=== PATIENT | male | born 1970 | race Caucasian/White ===

== ENCOUNTER 2018-06-26 16:17 | Emergency (ER) | payer OTHER ==
[~2018-06-26] VITALS: Ht 167.6 cm; Wt 99.8 kg
[2018-06-26 16:19] VITALS: BP 159/66; Ht 167.6 cm; Wt 99.8 kg
== END 2018-06-26 18:34 | disposition home or self-care (01) ==
LOC: ED 16:17
DX: H10.9 Unspecified conjunctivitis (principal); R51 Headache
CPT/HCPCS: J1885

== ENCOUNTER 2018-11-19 08:40 | Emergency (ER) | payer OTHER ==
[~2018-11-19] VITALS: Ht 167.6 cm; Wt 99.8 kg
[2018-11-19 08:58] VITALS: Ht 167.6 cm; Wt 99.8 kg
[2018-11-19 10:56] VITALS: BP 142/96
== END 2018-11-19 10:56 | disposition home or self-care (01) ==
LOC: ED 08:40
DX: M25.561 Pain in right knee (principal)
CPT/HCPCS: J1885

== ENCOUNTER 2018-11-29 12:34 | Emergency (ER) | payer OTHER ==
[~2018-11-29] VITALS: Ht 167.6 cm; Wt 98.1 kg
[2018-11-29 12:41] VITALS: Ht 167.6 cm; Wt 98.1 kg
[2018-11-29 14:43] LABS: BASOPHIL % 0.5 % (0-2); PLATELET COUNT 346 x10^3mcL (130-400); RED CELL DISTRIBUTION WIDTH 13.6 % (11.5-14.5)
[2018-11-29 14:48] LABS: CALCIUM 9.1 mg/dL (8.5-10.1); CARBON DIOXIDE 28.1 mmol/L (21-32); CHLORIDE SERUM 103 mmol/L (98-107); GFR1 > 60 mL/min; GLUCOSE SERUM 95 mg/dL (74-106); POTASSIUM SERUM 4.2 mmol/L (3.5-5.1); SODIUM SERUM 140 mmol/L (136-145)
[2018-11-29 14:53] LABS: ALBUMIN 3.8 g/dL (3.4-5.0); ALKALINE PHOSPHATASE 98 U/L (46-116); ALT/SGPT 36 U/L (16-63); AST/SGOT 17 U/L (15-37); BILIRUBIN TOTAL 0.4 mg/dL (0.20-1.00); CHOLESTEROL 195 mg/dL (<200); CHOLESTEROL/HDL RATIO 4.5; HDL CHOLESTEROL 43 mg/dL (40-60); TOTAL PROTEIN, SERUM 8.2 g/dL (6.4-8.2); TRIGLYCERIDES 198 mg/dL (<150)
[2018-11-29 15:03] LABS: T3 TOTAL 1.38 ng/mL
[2018-11-29 15:14] LABS: FREE T4 1.23 ng/dL (0.76-1.46); FREE THYROXINE INDEX 3.5 ug/dL (1.4-4.5); T4(THYROXINE) 10.4 ug/dL (4.7-13.3)
[2018-11-29 15:20] LABS: AMPHETAMINE QUAL UR NONE DETECTED (See below)
[2018-11-29 17:29] VITALS: BP 132/86
== END 2018-11-29 17:36 | disposition home or self-care (01) ==
LOC: ED 12:34
PROVIDERS: Emergency Medicine
DX: R42 Dizziness and giddiness (principal); I10 Essential (primary) hypertension
CPT/HCPCS: 36415; 84439; Q0092

== ENCOUNTER 2018-11-30 09:47 | Emergency (ER) | payer OTHER ==
[~2018-11-30] VITALS: Ht 167.6 cm; Wt 97.7 kg
[2018-11-30 10:02] VITALS: Ht 167.6 cm; Wt 97.7 kg
[2018-11-30 11:42] VITALS: BP 135/92
== END 2018-11-30 11:42 | disposition home or self-care (01) ==
LOC: ED 09:47
DX: I10 Essential (primary) hypertension (principal); M79.601 Pain in right arm; Z98.890 Other specified postprocedural states

== ENCOUNTER 2019-09-11 15:01 | Emergency (ER) | payer OTHER ==
[~2019-09-11] VITALS: Ht 170.2 cm; Wt 98.9 kg
[2019-09-11 15:24] VITALS: Ht 170.2 cm; Wt 98.9 kg
[2019-09-11 17:15] VITALS: BP 149/87
== END 2019-09-11 17:15 | disposition home or self-care (01) ==
LOC: ED 15:01
DX: J18.9 Pneumonia, unspecified organism (principal); I10 Essential (primary) hypertension; Z98.890 Other specified postprocedural states; Z88.6 Allergy status to analgesic agent
CPT/HCPCS: 87804

== ENCOUNTER 2020-02-21 08:45 | Inpatient (IN) | payer OTHER, SELFPAY ==
[~2020-02-21] VITALS: Ht 167.6 cm; Wt 88.5 kg
[2020-02-21 08:50] VITALS: Ht 167.6 cm; Wt 88.5 kg
[2020-02-21 10:02] LABS: CALCIUM 8.3 mg/dL (8.5-10.1); CARBON DIOXIDE 23.5 mmol/L (21-32); CHLORIDE SERUM 99 mmol/L (98-107); CREATININE SERUM 0.9 mg/dL (0.7-1.3); GFR1 > 60 mL/min; GLUCOSE SERUM 105 mg/dL (74-106); POTASSIUM SERUM 3.6 mmol/L (3.5-5.1); SODIUM SERUM 134 mmol/L (136-145)
[2020-02-21 10:06] LABS: ALKALINE PHOSPHATASE 88 U/L (46-116); ALT/SGPT 62 U/L (16-63); AST/SGOT 37 U/L (15-37); BILIRUBIN TOTAL 0.7 mg/dL (0.20-1.00); LACTIC DEHYDROGENASE (LDH) 282 U/L (100-190); TOTAL PROTEIN, SERUM 7.6 g/dL (6.4-8.2)
[2020-02-21 10:16] LABS: ALBUMIN 3.3 g/dL (3.4-5.0)
[2020-02-21] MEDS ORDERED: LOPRESSOR50 M1 PO (10:29)
[2020-02-21 10:37] LABS: BASOPHIL % 0.2 % (0-2); PLATELET COUNT 267 x10^3mcL (130-400); RED CELL DISTRIBUTION WIDTH 13.2 % (11.5-14.5)
[2020-02-21 11:01] LABS: FREE T4 1.55 ng/dL (0.76-1.46)
[2020-02-21 11:04] LABS: T4(THYROXINE) 15.1 ug/dL (4.7-13.3)
[2020-02-21 11:06] LABS: T3 TOTAL 1.82 ng/mL
[2020-02-21 11:28] LABS: microscopic required? YES; urine erythrocyte TRACE (NEGATIVE)
[2020-02-21 11:59] LABS: AMPHETAMINE QUAL UR NONE DETECTED (See below)
[2020-02-21 12:04] LABS: MAGNESIUM 2.1 mg/dL (1.8-2.4); PHOSPHOROUS 2.9 mg/dL (2.5-4.9)
[2020-02-21 12:10] LABS: CHOLESTEROL/HDL RATIO 4.1
[2020-02-22 00:24] VITALS: BP 148/79
[2020-02-22 05:50] VITALS: BP 128/89
[2020-02-22 07:40] LABS: BASOPHIL % 0.1 % (0-2); PLATELET COUNT 326 x10^3mcL (130-400); RED CELL DISTRIBUTION WIDTH 13.2 % (11.5-14.5)
[2020-02-22 07:59] LABS: CALCIUM 8.7 mg/dL (8.5-10.1); CARBON DIOXIDE 28.4 mmol/L (21-32); CHLORIDE SERUM 98 mmol/L (98-107); GFR1 > 60 mL/min; GLUCOSE SERUM 116 mg/dL (74-106); MAGNESIUM 2.3 mg/dL (1.8-2.4); PHOSPHOROUS 2.5 mg/dL (2.5-4.9); POTASSIUM SERUM 3.7 mmol/L (3.5-5.1); SODIUM SERUM 136 mmol/L (136-145)
[2020-02-22 08:03] LABS: C REACTIVE PROTEIN 15.6 mg/dL (<=0.9)
[2020-02-22 08:48] VITALS: BP 139/81
[2020-02-22 13:10] VITALS: BP 125/79
[2020-02-22 16:10] VITALS: BP 130/87
[2020-02-22 20:58] VITALS: BP 138/81
[2020-02-23 05:50] VITALS: BP 119/71
[2020-02-23 08:57] LABS: CALCIUM 9.3 mg/dL (8.5-10.1); CARBON DIOXIDE 29.9 mmol/L (21-32); CHLORIDE SERUM 100 mmol/L (98-107); GFR1 > 60 mL/min; GLUCOSE SERUM 105 mg/dL (74-106); MAGNESIUM 2.7 mg/dL (1.8-2.4); PHOSPHOROUS 3.5 mg/dL (2.5-4.9); POTASSIUM SERUM 4.2 mmol/L (3.5-5.1); SODIUM SERUM 137 mmol/L (136-145)
[2020-02-23 10:02] VITALS: BP 107/69
[2020-02-23 10:34] LABS: BASOPHIL % 0 % (0-2); PLATELET COUNT 405 x10^3mcL (130-400); RED CELL DISTRIBUTION WIDTH 13.6 % (11.5-14.5)
[2020-02-23 13:50] VITALS: BP 109/69
[2020-02-23 16:56] VITALS: BP 117/71
[2020-02-23 22:46] VITALS: BP 139/80
[2020-02-24 06:04] VITALS: BP 117/75
[2020-02-24 07:27] LABS: BASOPHIL % 0.2 % (0-2); RED CELL DISTRIBUTION WIDTH 13.4 % (11.5-14.5)
[2020-02-24 07:36] LABS: CALCIUM 8.7 mg/dL (8.5-10.1); CARBON DIOXIDE 28.9 mmol/L (21-32); CHLORIDE SERUM 102 mmol/L (98-107); GFR1 > 60 mL/min; GLUCOSE SERUM 104 mg/dL (74-106); MAGNESIUM 2.5 mg/dL (1.8-2.4); PHOSPHOROUS 3.7 mg/dL (2.5-4.9); POTASSIUM SERUM 3.9 mmol/L (3.5-5.1); SODIUM SERUM 140 mmol/L (136-145)
[2020-02-24 07:46] LABS: PLATELET COUNT 475 x10^3mcL (130-400)
[2020-02-24 09:12] VITALS: BP 124/72
[2020-02-24] MEDS ORDERED: DECADRON6 MG PO (11:54)
[2020-02-24 13:42] VITALS: BP 132/77
[2020-02-24 13:50] VITALS: BP 132/77
== END 2020-02-24 16:07 | disposition home or self-care (01) | DRG 177 ==
LOC: ED 08:45 → DU 10:10
PROVIDERS: Emergency Medicine; ADMIT Internal Medicine; ATTEND Internal Medicine
DX: U07.1 COVID-19 (principal); J12.89 Other viral pneumonia; J96.01 Acute respiratory failure with hypoxia; E87.1 Hypo-osmolality and hyponatremia; E44.1 Mild protein-calorie malnutrition; I10 Essential (primary) hypertension; E05.90 Thyrotoxicosis, unspecified without thyrotoxic crisis or storm; Z88.6 Allergy status to analgesic agent; Z68.31 Body mass index [BMI] 31.0-31.9, adult; Z79.899 Other long term (current) drug therapy
CPT/HCPCS: 36600; 83880; 84439; 85378; 87804; G0378; J0456; J0696; J1100; J1644; J7040; J7050; J7060; Q0092; U0003-CS